=== PATIENT | male | born 1995 | race Hispanic/Latino ===

== ENCOUNTER 2021-07-09 20:53 | Emergency (ER) | payer SELFPAY ==
[2021-07-09 22:17] LABS: Absolute Lymphocytes (CBC) 1.4 K/uL (0.7-4.9); Basophils % 0.2 % (0-1.3); Hematocrit 48.1 % (39.6-49.0); Lymphocytes % 11.6 % (15.3-44.8); MPV 10.1 fL (7.6-11.3); RBC Red Blood Cell Count 5.14 M/uL (4.33-5.43)
[2021-07-09 22:29] LABS: Albumin 4.8 g/dL (3.4-5.0); Bilirubin Direct 0.2 mg/dL (0-0.2); Bilirubin Total 0.9 mg/dL (0.2-1.0); Potassium 3.6 mmol/L (3.5-5.1); Protein, Total 8.9 g/dL (6.4-8.2)
--- NOTE | 2021-07-09 22:57 | EDPHYS ---
Physician Documentation [facility] Name: Devang Gonzalez Jr Age: 25 yrs Sex: Male : 1995 Arrival Date: 07/09/2021 Time: 20:54 Bed 25 Private MD: ED Physician Deepak Chaudhry HPI: 07/09 22:55 This 25 yrs old Male presents to ER via Ambulatory with complaints of Bee kb Sting, Vomiting. 22:55 The patient presents to the emergency department with nausea, vomiting, diarrhea. kb Onset: The symptoms/episode began/occurred today. Possible causes: "bee sting". The symptoms are aggravated by nothing. The symptoms are alleviated by nothing. Associated signs and symptoms: Pertinent positives: diarrhea, nausea, vomiting. Severity of symptoms: At their worst the symptoms were moderate in the emergency department the symptoms have improved. The patient has not experienced similar symptoms in the past. The patient has not recently seen a physician. Pt reports he was stung by about 6 bees at 1630 when he was mowing. States he went home, showered and then ate dinner. Reports n/v/d after eating. . Historical: - Allergies: 21:15 No Known Allergies; iw - Home Meds: 21:15 None [Active]; iw - PMHx: 21:15 None; iw - PSHx: 21:15 None; iw - Immunization history:: Adult Immunizations Client reports having NOT received the Covid vaccine. - Social history:: Smoking status: Patient denies any tobacco usage or history of. ROS: 22:53 Constitutional: Negative for fever, chills, and weight loss. kb 22:53 Abdomen/GI: Positive for nausea, vomiting, and diarrhea. 22:53 All other systems are negative. Exam: 22:53 Constitutional: This is a well developed, well nourished patient who is awake, alert, kb and in no acute distress. Head/Face: Normocephalic, atraumatic. ENT: Moist Mucous membranes Cardiovascular: Regular rate and rhythm with a normal S1 and S2. No gallops, murmurs, or rubs. No pulse deficits. Respiratory: Respirations even and unlabored. No increased work of breathing, no retractions or nasal flaring. Abdomen/GI: Soft, non-tender. No distention Skin: Warm, dry with normal turgor. Normal color. MS/ Extremity: Pulses equal, no cyanosis. Neurovascular intact. Full, normal range of motion. Neuro: Awake and alert, GCS 15, oriented to person, place, time, and situation. Moves all extremities. Normal gait. Psych: Awake, alert, with orientation to person, place and time. Behavior, mood, and affect are within normal limits. Vital Signs: 21:14 BP 119 / 81; Pulse 103; Resp 18; Temp 98.0; Pulse Ox 96% on R/A; Weight 95.25 kg; iw Height 5 ft. 10 in. (177.80 cm); 21:51 Pulse 98; Resp 18; Pulse Ox 99% ; lh3 21:14 Body Mass Index 30.13 (95.25 kg, 177.80 cm) iw MDM: 21:10 Patient medically screened. kb 22:53 Data reviewed: vital signs, nurses notes. Data interpreted: Pulse oximetry: on room air kb is 99 %. Interpretation: normal. Counseling: I had a detailed discussion with the patient and/or guardian regarding: the historical points, exam findings, and any diagnostic results supporting the discharge/admit diagnosis, the need for outpatient follow up, a family practitioner, to return to the emergency department if symptoms worsen or persist or if there are any questions or concerns that arise at home. 07/09 22:08 Order name: Basic Metabolic Panel; Complete Time: 22:30 EDMS 07/09 22:08 Order name: Liver (Hepatic) Function; Complete Time: 22:30 EDMS 07/09 21:40 Order name: IV Saline Lock; Complete Time: 21:53 kb 07/09 21:40 Order name: Labs collected and sent; Complete Time: 21:53 kb 18 22:08 Order name: Lipase; Complete Time: 22:30 EDMS 18 22:08 Order name: CBC with Automated Diff; Complete Time: 22:28 EDMS Administered Medications: 23:07 Drug: SOLU-Medrol (methylPrednisoLONE) 125 mg Route: IVP; Site: right antecubital; lh3 23:08 Follow up: Response: No adverse reaction 3 23:07 Drug: Pepcid (famotidine) 20 mg Route: IVP; Site: right antecubital; lh3 23:07 Follow up: Response: No adverse reaction 3 Disposition: 07/10 07:16 Co-signature as Attending Physician, Deepak Chaudhry I agree with the assessment and plan sp3 of care. Disposition Summary: 07/09/21 22:57 Discharge Ordered Location: Home kb Condition: Stable kb Diagnosis - Nausea with vomiting, unspecified kb - Diarrhea, unspecified kb Followup: kb - With: Emergency Department - When: As needed - Reason: Worsening of condition Followup: kb - With: Private Physician - When: 2 - 3 days - Reason: Recheck today's complaints, Continuance of care, Re-evaluation by your physician Discharge Instructions: - Discharge Summary Sheet kb - Food Choices to Help Relieve Diarrhea, Adult kb - Bee, Wasp, or Hornet Sting, Adult kb - Nausea and Vomiting, Adult, [id number] kb - Diarrhea, Adult, [id number] kb Forms: - Medication Reconciliation Form kb - Thank You Letter kb - Antibiotic Education kb - Prescription Opioid Use kb Signatures: Dispatcher [employer] EDMS Zunilda Martinez, FLARE MAKER-C FLARE MAKER-Herbertb Jany Johnson, RN Deepak Anderson 3 Nataly Medeiros RN [facility]3
--- NOTE | 2021-07-09 22:57 | ER ---
Nurse's Notes [facility] Name: Devang Gonzalez Jr Age: 25 yrs Sex: Male : 1995 Arrival Date: 07/09/2021 Time: 20:54 Bed 25 Private MD: Diagnosis: Nausea with vomiting, unspecified;Diarrhea, unspecified Presentation: 07/09 21:13 Chief complaint: Patient states: 5-7 bees stung him around 1630 today , started to feel iw dizzy and had n/v after eating dinner. Coronavirus screen: At this time, the client does not indicate any symptoms associated with coronavirus-19. Ebola Screen: Patient negative for fever greater than or equal to 101.5 degrees Fahrenheit, and additional compatible Ebola Virus Disease symptoms Patient denies exposure to infectious person. Patient denies travel to an Ebola-affected area in the 21 days before illness onset. No symptoms or risks identified at this time. 21:13 Method Of Arrival: Ambulatory iw 21:14 Onset: The symptoms/episode began/occurred today. Anaphylaxis evaluation, no signs or iw symptoms of anaphylaxis were noted. Initial Sepsis Screen: Does the patient meet any 2 criteria? No. Patient's initial sepsis screen is negative. Does the patient have a suspected source of infection? No. Patient's initial sepsis screen is negative. Risk Assessment: Do you want to hurt yourself or someone else? Patient reports no desire to harm self or others. Onset of symptoms was July 09, 2021. 21:14 Acuity: RACHELE 4 iw Triage Assessment: 21:51 General: Appears in no apparent distress. Behavior is calm, cooperative, appropriate lh3 for age. Pain: Denies pain. Historical: - Allergies: 21:15 No Known Allergies; iw - Home Meds: 21:15 None [Active]; iw - PMHx: 21:15 None; iw - PSHx: 21:15 None; iw - Immunization history:: Adult Immunizations Client reports having NOT received the Covid vaccine. - Social history:: Smoking status: Patient denies any tobacco usage or history of. Screenin:52 Abuse screen: Denies threats or abuse. Nutritional screening: No deficits noted. lh3 Tuberculosis screening: No symptoms or risk factors identified. Fall Risk IV access (20 points). Assessment: 21:52 General: Appears in no apparent distress. Behavior is calm, cooperative, appropriate lh3 for age. Respiratory: Airway is patent Respiratory effort is even, unlabored, Breath sounds are clear. Vital Signs: 21:14 BP 119 / 81; Pulse 103; Resp 18; Temp 98.0; Pulse Ox 96% on R/A; Weight 95.25 kg; iw Height 5 ft. 10 in. (177.80 cm); 21:51 Pulse 98; Resp 18; Pulse Ox 99% ; lh3 21:14 Body Mass Index 30.13 (95.25 kg, 177.80 cm) ED Course: 20:54 Patient arrived in ED. cf2 21:10 Zunilda Martinez [facility]C [facility]. kb 21:10 Deepak Chaudhry is Attending Physician. kb 21:15 Triage completed. iw 21:15 Arm band placed on. iw 21:51 Nataly Medeiros, RN is Primary Nurse. 3 21:52 Patient has correct armband on for positive identification. Bed in low position. Call lh3 light in reach. 21:52 No provider procedures requiring assistance completed. Inserted saline lock: 20 gauge lh3 in right antecubital area, using aseptic technique. 23:08 IV discontinued, bleeding controlled. 3 Administered Medications: 23:07 Drug: SOLU-Medrol (methylPrednisoLONE) 125 mg Route: IVP; Site: right antecubital; 3 23:08 Follow up: Response: No adverse reaction 3 23:07 Drug: Pepcid (famotidine) 20 mg Route: IVP; Site: right antecubital; 3 23:07 Follow up: Response: No adverse reaction 3 Outcome: 22:57 Discharge ordered by . kb 23:08 Discharged to home ambulatory. 3 23:08 Condition: stable 23:08 Discharge instructions given to patient, Instructed on discharge instructions, Demonstrated understanding of instructions. 23:09 Patient left the ED. 3 Signatures: Zunilda Martinez FNP-C FNP-Jany Wilson, RN YOLANDA Petra Duncan cf2 Nataly Medeiros RN RN 3
[2021-07-09] MEDS ORDERED: METHYLPREDNISOLONE 125 MG INJ ONE (23:22)
[2021-07-09] MEDS ORDERED: FAMOTIDINE 20 MG/2 ML VIAL IV ONE (23:22)
[2021-07-09 23:37] VITALS: BP 119/81; TEMP 98; O2SAT 99
== END 2021-07-09 23:09 | disposition home or self-care (01) ==
LOC: ER 20:53
DX: R19.7 Diarrhea, unspecified (principal); T63.441A Toxic effect of venom of bees, accidental (unintentional), initial encounter
CPT/HCPCS: 36415; 80048; 80076; 83690; 85025; 96374; 96375; 99283; J2930

== ENCOUNTER 2022-03-16 19:04 | Emergency (ER) | payer SELFPAY ==
[2022-03-16 20:31] LABS: Absolute Lymphocytes (CBC) 2.6 K/uL (0.7-4.9); Hematocrit 43.2 % (39.6-49.0); Lymphocytes % 38.8 % (15.3-44.8); MPV 10.2 fL (7.6-11.3); RBC Red Blood Cell Count 4.74 M/uL (4.33-5.43)
[2022-03-16] MEDS ORDERED: METOCLOPRAMIDE 10 MG/2mL INJ ONE (20:37)
[2022-03-16] MEDS ORDERED: DIPHENHYDRAMINE 50 MG/ML VIAL ONE (20:37)
[2022-03-16] MEDS ORDERED: NA CHLORIDE 0.9% 1,000 ML ONE (20:37)
[2022-03-16] MEDS ORDERED: KETOROLAC 30 MG/ML INJ ONE (20:37)
[2022-03-16 20:52] LABS: ALT/SGPT 69 U/L (12-78); AST/SGOT 27 U/L (15-37); Alkaline Phosphatase 82 U/L (45-117); BUN Blood Urea Nitrogen 17 mg/dL (7-18); Bicarbonate 28 mmol/L (21-32); Bilirubin Total 0.4 mg/dL (0.2-1.0); Glucose Level 88 mg/dL (74-106); Protein, Total 7.5 g/dL (6.4-8.2); Sodium Level 138 mmol/L (136-145)
--- NOTE | 2022-03-16 21:48 | RAD REPORT ---
EXAM DESCRIPTION: CT - Head Brain Wo Cont - 03/16/2022 9:40 pm CLINICAL HISTORY: Headache, new or worsening, positional COMPARISON: Head angio dated 03/16/2022 TECHNIQUE: All CT scans are performed using dose optimization technique as appropriate and may inclu de automated exposure control or mA/KV adjustment according to patient size. FINDINGS: No intracranial hemorrhage, hydrocephalus or extra-axial fluid collection.No areas of brai n edema or evidence of midline shift. The paranasal sinuses and mastoids are clear. The calvarium is intact. IMPRESSION: No acute intracranial abnormality.
--- NOTE | 2022-03-16 21:49 | RAD REPORT ---
EXAM DESCRIPTION: CT - Head angio - 03/16/2022 9:43 pm CLINICAL HISTORY: Headache, new or worsening, positional COMPARISON: No comparisons TECHNIQUE: CT angiography of the head was performed with MIPs. All CT scans are performed using dose optimization technique as appropriate and may include automated exposure control or mA/KV adjustment according to patient size. FINDINGS: Anterior circulation: No aneurysm or large vessel occlusion. No hemodynamically significant stenosis. No arteriovenous malf ormation identified. Posterior circulation: No aneurysm or large vessel occlusion. No hemodynamically significant stenosis. No arteriovenous malf ormation identified. IMPRESSION: No significant flow abnormality is detected. No aneurysm identified.
--- NOTE | 2022-03-16 21:54 | ER ---
Nurse's Notes [facility] Name: Devang Fontenot Jr Age: 26 yrs Sex: Male : 1995 Arrival Date: 03/16/2022 Time: 19:06 Bed 17 Private MD: Diagnosis: Headache Presentation: 03/16 19:38 Chief complaint: Patient states: he has had a headache for 5-6 days. has taken migraine sm5 medication and tyenol, gets some relief but pain comes back. pt has no hx of migraines or headaches in the past. Coronavirus screen: Vaccine status: Patient reports receiving the 1st dose of the Covid vaccine. Ebola Screen: No symptoms or risks identified at this time. Initial Sepsis Screen: Does the patient meet any 2 criteria? No. Patient's initial sepsis screen is negative. Does the patient have a suspected source of infection? No. Patient's initial sepsis screen is negative. Risk Assessment: Do you want to hurt yourself or someone else? Patient reports no desire to harm self or others. Onset of symptoms was March 11, 2022. 19:38 Method Of Arrival: Ambulatory [facility] 19:38 Acuity: RACHELE 3 5 Triage Assessment: 19:39 Headache History: Denies prior headaches. General: Appears in no apparent distress. 5 Behavior is cooperative, appropriate for age. Pain: Complains of pain in head Pain currently is 6 out of 10 on a pain scale. Pain began 6 days ago Also complains of no other associated symptoms. Neuro: No deficits noted. Level of Consciousness is awake, alert, obeys commands, Oriented to person, place, time, situation. Cardiovascular: No deficits noted. Capillary refill < 3 seconds Patient's skin is warm and dry. Respiratory: No deficits noted. Airway is patent Trachea midline Respiratory effort is even, unlabored. Historical: - Allergies: 19:39 No Known Allergies; sm5 - Home Meds: 19:39 None [Active]; sm5 - PMHx: 19:39 None; sm5 - Immunization history:: Client reports receiving the 1st dose of the Covid vaccine. - Social history:: Smoking status: Patient reports the use of cigarette tobacco products, denies chronic smoking, but will smoke occasionally, Patient uses alcohol, weekly. - Family history:: not pertinent. Screenin:41 Abuse screen: Denies threats or abuse. Denies injuries from another. Nutritional sm5 screening: No deficits noted. Tuberculosis screening: No symptoms or risk factors identified. Fall Risk None identified. Assessment: 19:45 Reassessment: see triage assessment. sm5 22:05 Reassessment: Patient states feeling better. Patient states symptoms have improved. sm5 Pain: Complains of pain in right temporal area and right frontal area and left temporal area and left frontal area and forehead. Vital Signs: 19:35 BP 135 / 90; Pulse 63; Resp 18; Temp 98.2(O); Pulse Ox 100% on R/A; Weight 99.79 kg; oe Height 5 ft. 11 in. (180.34 cm); 22:05 BP 132 / 72; Pulse 72; Resp 17; Pulse Ox 100% on R/A; sm5 19:35 Body Mass Index 30.68 (99.79 kg, 180.34 cm) oe [place] Coma Score: 20:09 Eye Response: spontaneous(4). Verbal Response: oriented(5). Motor Response: obeys dwight commands(6). Total: 15. ED Course: 19:06 Patient arrived in ED. as 19:26 Romeo Cisse MD is Attending Physician. dwight 19:39 Triage completed. 5 19:39 Arm band placed on right wrist. sm5 19:41 Patient has correct armband on for positive identification. Bed in low position. Call sm5 light in reach. Side rails up X2. Pulse ox on. NIBP on. 20:01 Lorena Hickman RN is Primary Nurse. 5 20:05 Inserted saline lock: 20 gauge in right antecubital area, using aseptic technique. 5 Blood collected. 21:42 CT Head Brain wo Cont In Process Unspecified. EDMS 21:44 CT Head Angio In Process Unspecified. EDMS 21:53 Christoph Hebert MD is Referral Physician. dwight 22:05 No provider procedures requiring assistance completed. IV discontinued, intact, sm5 bleeding controlled, No redness/swelling at site. Pressure dressing applied. Administered Medications: 20:40 Drug: Benadryl (diphenhydrAMINE) 50 mg Route: IVP; Site: right antecubital; 5 22:04 Follow up: Response: No adverse reaction [facility] 20:40 Drug: Reglan (metoCLOPramide) 10 mg Route: IVP; Site: right antecubital; sm5 22:04 Follow up: Response: No adverse reaction 5 20:41 Drug: NS 0.9% 1000 ml Route: IV; Rate: 1 bolus; Site: right antecubital; sm5 21:37 Follow up: IV Status: Completed infusion; IV Intake: 1000ml 5 20:41 Drug: Ketorolac 30 mg Route: IVP; Site: right antecubital; sm5 22:04 Follow up: Response: Pain is decreased sm5 Intake: 21:37 IV: 1000ml; Total: 1000ml. 5 Outcome: 21:53 Discharge ordered by . dwight 22:06 Discharged to home ambulatory. [facility] 22:06 Condition: stable 22:06 Discharge instructions given to patient, Instructed on discharge instructions, follow up and referral plans. medication usage, Demonstrated understanding of instructions, follow-up care, medications, Prescriptions given X 2. 22:06 Patient left the ED. [facility] Signatures: Dispatcher [employer] EDMS Romeo Cisse MD MD cha Martinez, Amelia as Espinosa, Orlando oe Mazur, Sarah, RN RN 5
--- NOTE | 2022-03-16 21:54 | EDPHYS ---
Physician Documentation [facility] Name: Devang Fontenot Jr Age: 26 yrs Sex: Male : 1995 Arrival Date: 03/16/2022 Time: 19:06 Bed 17 Private MD: ED Physician Romeo Cisse HPI: 03/16 20:06 This 26 yrs old Male presents to ER via Ambulatory with complaints of Headache dwight > 24hrs Old. 20:06 The patient complains of pain to the forehead, left frontal area, left temporal area, dwight right frontal area and right temporal area. The patient describes the headache as aching, constant. Onset: The symptoms/episode began/occurred 5 day(s) ago. Associated signs and symptoms: Pertinent positives: nausea. Severity of symptoms: At its worst the pain was moderate, in the emergency department the pain is unchanged. Headache History: The patient has had previous headaches and this one is different than previous episodes. The symptoms are alleviated by nothing. the symptoms are aggravated by nothing. The patient has not experienced similar symptoms in the past. Historical: - Allergies: 19:39 No Known Allergies; sm5 - Home Meds: 19:39 None [Active]; sm5 - PMHx: 19:39 None; sm5 - Immunization history:: Client reports receiving the 1st dose of the Covid vaccine. - Social history:: Smoking status: Patient reports the use of cigarette tobacco products, denies chronic smoking, but will smoke occasionally, Patient uses alcohol, weekly. - Family history:: not pertinent. ROS: 20:06 Constitutional: Negative for fever, chills, and weight loss, Eyes: Negative for injury, dwight pain, redness, and discharge, ENT: Negative for injury, pain, and discharge, Neck: Negative for injury, pain, and swelling, Cardiovascular: Negative for chest pain, palpitations, and edema, Respiratory: Negative for shortness of breath, cough, wheezing, and pleuritic chest pain, Abdomen/GI: Negative for abdominal pain, nausea, vomiting, diarrhea, and constipation, Back: Negative for injury and pain, : Negative for injury, bleeding, discharge, and swelling, Skin: Negative for injury, rash, and discoloration, Neuro: Negative for headache, weakness, numbness, tingling, and seizure, Psych: Negative for depression, anxiety, suicide ideation, homicidal ideation, and hallucinations, Allergy/Immunology: Negative for hives, rash, and allergies, Endocrine: Negative for neck swelling, polydipsia, polyuria, polyphagia, and marked weight changes, Hematologic/Lymphatic: Negative for swollen nodes, abnormal bleeding, and unusual bruising. 20:06 MS/extremity: 20:06 MS/extremity: Negative for acute changes. 20:06 Neuro: Positive for headache. Exam: 20:08 Constitutional: This is a well developed, well nourished patient who is awake, alert, dwight and in no acute distress. Head/Face: Normocephalic, atraumatic. Eyes: Pupils equal round and reactive to light, extra-ocular motions intact. Lids and lashes normal. Conjunctiva and sclera are non-icteric and not injected. Cornea within normal limits. Periorbital areas with no swelling, redness, or edema. ENT: Nares patent. No nasal discharge, no septal abnormalities noted. Tympanic membranes are normal and external auditory canals are clear. Oropharynx with no redness, swelling, or masses, exudates, or evidence of obstruction, uvula midline. Mucous membranes moist. Neck: Trachea midline, no thyromegaly or masses palpated, and no cervical lymphadenopathy. Supple, full range of motion without nuchal rigidity, or vertebral point tenderness. No Meningismus. Chest/axilla: Normal chest wall appearance and motion. Nontender with no deformity. No lesions are appreciated. Cardiovascular: Regular rate and rhythm with a normal S1 and S2. No gallops, murmurs, or rubs. Normal PMI, no JVD. No pulse deficits. Respiratory: Lungs have equal breath sounds bilaterally, clear to auscultation and percussion. No rales, rhonchi or wheezes noted. No increased work of breathing, no retractions or nasal flaring. Abdomen/GI: Soft, non-tender, with normal bowel sounds. No distension or tympany. No guarding or rebound. No evidence of tenderness throughout. Back: No spinal tenderness. No costovertebral tenderness. Full range of motion. Male : Normal genitalia with no discharge or lesions. Skin: Warm, dry with normal turgor. Normal color with no rashes, no lesions, and no evidence of cellulitis. MS/ Extremity: Pulses equal, no cyanosis. Neurovascular intact. Full, normal range of motion. Neuro: Awake and alert, GCS 15, oriented to person, place, time, and situation. Cranial nerves II-XII grossly intact. Motor strength 5/5 in all extremities. Sensory grossly intact. Cerebellar exam normal. Normal gait. Psych: Awake, alert, with orientation to person, place and time. Behavior, mood, and affect are within normal limits. 20:08 Neck: ROM/movement: pain, is not appreciated, limited range of motion, is not appreciated, Meningeal signs: are not present, Kernig's sign is negative, Brudzinski's sign is negative, nuchal rigidity, is not appreciated. Vital Signs: 19:35 BP 135 / 90; Pulse 63; Resp 18; Temp 98.2(O); Pulse Ox 100% on R/A; Weight 99.79 kg; oe Height 5 ft. 11 in. (180.34 cm); 22:05 BP 132 / 72; Pulse 72; Resp 17; Pulse Ox 100% on R/A; sm5 19:35 Body Mass Index 30.68 (99.79 kg, 180.34 cm) oe [place] Coma Score: 20:09 Eye Response: spontaneous(4). Verbal Response: oriented(5). Motor Response: obeys [facility] commands(6). Total: 15. MDM: 19:26 Patient medically screened. dwight 20:09 Differential diagnosis: cluster headache, cerebral vascular accident, epidural dwight hematoma, hypertensive headache, neoplasm, otitis, sinusitis, trigeminal neuralgia, vasomotor headache. Data reviewed: vital signs, nurses notes, lab test result(s), radiologic studies, CT scan. Data interpreted: security monitor: rate is 63 beats/min, rhythm is regular, Pulse oximetry: on room air is 100 %. Counseling: I had a detailed discussion with the patient and/or guardian regarding: the historical points, exam findings, and any diagnostic results supporting the discharge/admit diagnosis, lab results, radiology results, the need for outpatient follow up, for definitive care, a family practitioner, a neurologist. 03/16 20:06 Order name: CBC with Diff; Complete Time: 20:35 [facility] 03/16 20:06 Order name: Comprehensive Metabolic Panel; Complete Time: 21:36 [facility] 03/16 20:06 Order name: CT Head Brain wo Cont [facility] 03/16 20:06 Order name: CT Head Angio dwight 03/16 20:06 Order name: Urine Dipstick-Ancillary (obtain specimen) dwight Administered Medications: 20:40 Drug: Benadryl (diphenhydrAMINE) 50 mg Route: IVP; Site: right antecubital; sm5 22:04 Follow up: Response: No adverse reaction 5 20:40 Drug: Reglan (metoCLOPramide) 10 mg Route: IVP; Site: right antecubital; sm5 22:04 Follow up: Response: No adverse reaction 5 20:41 Drug: NS 0.9% 1000 ml Route: IV; Rate: 1 bolus; Site: right antecubital; sm5 21:37 Follow up: IV Status: Completed infusion; IV Intake: 1000ml 5 20:41 Drug: Ketorolac 30 mg Route: IVP; Site: right antecubital; sm5 22:04 Follow up: Response: Pain is decreased sm5 Disposition Summary: 03/16/22 21:53 Discharge Ordered Location: Home dwight Problem: new dwight Symptoms: have improved dwight Condition: Stable dwight Diagnosis - Headache dwight Followup: dwight - With: Private Physician - When: 2 - 3 days - Reason: Recheck today's complaints, Continuance of care, Re-evaluation by your physician Followup: dwight - With: - When: 2 - 3 days - Reason: Recheck today's complaints, Re-evaluation by your physician Discharge Instructions: - Discharge Summary Sheet dwight - General Headache Without Cause dwight - General Headache Without Cause, [id number] [facility] Forms: - Medication Reconciliation Form dwight - Thank You Letter dwight - Antibiotic Education dwight - Prescription Opioid Use [facility] Prescriptions: - Zofran 4 mg Oral Tablet - take 1 tablet by ORAL route every 12 hours As needed; 20 tablet; Refills: 0, dwight Product Selection Permitted - Fioricet with Codeine [id number] mg Oral capsule - take 1 capsule by ORAL route every 4 hours as needed not to exceed 6 capsules cp per 24hrs; 20 capsule; Refills: 0, Product Selection Permitted Signatures: Dispatcher [employer] Romeo Zaman MD MD cha Mazur, Sarah, RN RN 5
[2022-03-17 00:24] VITALS: TEMP 98.2; O2SAT 100
[2022-03-17 00:25] VITALS: BP 132/72
== END 2022-03-16 22:06 | disposition home or self-care (01) ==
LOC: ER 19:04
DX: R51.9 Headache, unspecified (principal); F17.210 Nicotine dependence, cigarettes, uncomplicated
CPT/HCPCS: 36415; 70450; 70496; 80053; 85025; 96361; 96374; 96375; 99284; J1200; J2765; J7030; Q9967